=== PATIENT | male | born 2000 | race Caucasian/White ===

== ENCOUNTER 2020-02-01 05:10 | Emergency (ER) | payer OTHER, SELFPAY ==
[2020-02-01 05:12] VITALS: BP 124/75; PULSE 77; RESP 15; TEMP 36.8; O2SAT 97; BMI 23.9
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
--- NOTE | 2020-02-01 05:34 | RAD_ITS ---
STUDY: X-RAY - LEFT HAND, ATTENTION index FINGER REASON FOR EXAM: Male, 19 years old. LEFT INDEX FINGER PAIN AND SWELLING. TECHNIQUE: 3 view(s) of the finger were obtained. COMPARISON: None. FINDINGS: There is an oblique fracture of the proximal phalanx of the index finger with extension to the proximal interphalangeal joint.. Normal middle phalanx. Normal distal phalanx. Normal distal interphalangeal joint. RAD/Finger(s) Min 2 Views IMPRESSION: Mildly displaced oblique fracture of the distal aspect of the proximal phalanx of the index finger with extension to the proximal interphalangeal joint. Electronically Signed: Bonifacio Villagran, at 6:00 EDT Tel , Service support ,
[2020-02-01 06:30] VITALS: BP 124/75; PULSE 77; RESP 15; O2SAT 97
== END 2020-02-01 06:31 | disposition home or self-care (01) ==
LOC: ED 05:56
PROVIDERS: Emergency Provider Emergency Medicine; PCP Family Medicine
DX: S62.611A Displaced fracture of proximal phalanx of left index finger, initial encounter for closed fracture (principal); F17.200 Nicotine dependence, unspecified, uncomplicated; V59.3XXA Occupant (driver) (passenger) of pick-up truck or van injured in unspecified nontraffic accident, initial encounter
CPT/HCPCS: 73140; 99283

== ENCOUNTER 2020-02-11 11:30 | Day surgery (SDC) | payer OTHER, SELFPAY ==
[2020-02-04 08:48] VITALS: BMI 23.9
[2020-02-11 12:02] VITALS: BP 124/69; PULSE 59; RESP 16; TEMP 37.1; O2SAT 98; BMI 22.4
[2020-02-11] MEDS: Lactated Ringers 1,000 ML 100 ML IV (12:08)
[2020-02-11] MEDS: Cefazolin 2 GM in 0.9% Normal Saline 100 ML IV (13:35)
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
--- NOTE | 2020-02-11 13:45 | RAD_ITS ---
STUDY: X-RAY - LEFT HAND, ATTENTION INDEX FINGER REASON FOR EXAM: Percutaneous pinning of left index finger fracture. TECHNIQUE: 6 intraoperative images of the finger were obtained. COMPARISON: Radiographs 02/01/2020. FINDINGS: There are 3 pins transfixing a fracture of the second proximal phalanx in anatomical alignment and position. 79.1 seconds of fluoroscopy time was used. Electronically Signed: Albin Mae MD at 15:16 EDT Tel , Service support , RAD/Finger(s) Min 2 Views
--- NOTE | 2020-02-11 13:46 | PCM.DC.ORTHO ---
Discharge Diet: No Restrictions - leave dressing intact, follow up on sunday with kayla for dressing change and initiation of dynasplint Discharge Activity: May Not Drive May shower in (days): 1 Ice area for (Minutes): 20 - Every hour while awake. Weight Bearing Status: Weight bearing as tolerated Keep extremity elevated above heart level: Operative Extremity Call your doctor if your incision/area has: Continuous Slow Oozing, Sudden Increased Bleeding, Increased Pain/ Swelling, Increased Redness, Foul Smelling Discharge Call your doctor if you observe: Fever of 101 or Higher, Coldness, Increased Pain, Numbness or Tingling, Change in Color, Calf discomfort Allergies/Adverse Reactions: Allergies No Known Allergies Allergy (Verified 02/11/20 11:49) Medications to take at Discharge hydrocodone 5 mg-acetaminophen 325 mg tablet 1 tab PO BID PRN 02/04/20 hydroxyzine HCl 50 mg tablet 50 mg PO QHS 02/04/20 mirtazapine 15 mg tablet 15 mg PO QHS 02/04/20 sertraline 50 mg tablet 50 mg PO QHS 02/04/20 Hydrocodone Bitart/Apap 5-325 [[place] 5MG-325MG] 1 - 2 tablet PO Q6H PRN PRN 5 Days #40 tablet 02/11/20 The following prescriptions were given: Hydrocodone Bitart/Apap 5-325 [[place] 5MG-325MG] 1 - 2 tablet PO Q6H PRN PRN 5 Days #40 tablet PRN Reason: Pain Transmission Status: Sent to [facility] Primary Care Physician: Lillie Wong MD [Primary Care Provider] - Test Results: Test results from this visit will be discussed in further detail at your follow-up appointment, if applicable. Please Follow Up With: Katherin Hale, DO - [phone]
--- NOTE | 2020-02-11 13:47 | PCM.OPRPT ---
Report of Operation Date of Procedure: 02/11/20 Pre-Operative Diagnosis: left hand proximal phalanx- displaced fracture Post-Operative Diagnosis: same Surgery/Procedure Performed:: left hand proximal phalanx crpp (3) pot firer: Travon Nevarez Type of Anesthesia:: General, Local Anesthesiologist: Kevin Moses Replaced: 800cc lr Description of Procedure: Preop note Patient is a 19-year-old male who injured his left index finger. He was seen in the emergency room and noted to be displaced seen in our office it was displaced and malrotated. At that point discussion was for close reduction percutaneous pinning versus open reduction internal fixation. Risk benefits and alternatives were discussed with patient. Risk include but not limited to blood loss, blood clot, infection, neurovascular, failure procedure, loss of life and loss of limb. Patient is aware like proceed with left proximal phalanx first ray close reduction versus open reduction. We discussed the current risk associated COVID-19. While it is understood that there is a community spread of COVID 19 the risk of jesus COVID-19 while at [facility] is very low, however, the risk cannot be completely mitigated because of the community spread of the disease. We discussed in detail the risk of exposure to and or potential harm posed by the COVID-19 virus with having a surgery/procedure at this time versus the risk of delaying the surgery/procedure. Is not possible to know either the risk of delaying the surgery procedure or chance of getting an infection with perfect accuracy, but a joint decision was made to proceed at this time with a schedule surgery/procedure as indicated on the consent form. Patient was notified that we will need to comply with any screening or testing [facility] wishes to perform or that surgery may be delayed for any positive results. Operative note Patient seen and examined preoperative holding area. Left knee was marked. Patient brought to the operating room placed supine the operating table. All bony prominences well-padded SCDs placed on his bilateral lower extremity. Left arm was prepped and draped in usual sterile technique. Timeout was performed. We then closed reduced and noted that he was off and malrotation as well. We used clamps to maintain the stability of the fracture site and then we placed 3 K wires starting from the radial border going ulnarly and making sure in both AP and lateral planes that we had maintained anatomic reduction and he had a good cascade at the end which he did half. We then performed a local block of his index finger for pain control for pain. We took multiple images in both AP and lateral planes. We truncated the pins after bending them and placing dressing on the left hand. A splint was applied to the left index finger at 90 about 80 degrees of flexion. Patient taught procedure well no complication shows recovery room in stable condition Postoperative note Nonweightbearing left hand Follow-up on Sunday for initiation of Dynasplint flexion Call with increased pain numbness tingling or further issues arise Dragon disclaimer Discussed with family This note was generated with [employer] dictation software. It may contain incorrect words, spelling, and punctuation that were not noted in checking the note before signing.
[2020-02-11] MEDS: Ropivacaine 0.5% 30 ML Vial (14:24)
[2020-02-11 14:44] VITALS: BP 124/69; BP 134/96; PULSE 78; RESP 20; TEMP 36.8; O2SAT 98
[2020-02-11 14:55] VITALS: BP 124/69; BP 128/83; PULSE 85; RESP 18; O2SAT 96
[2020-02-11 15:05] VITALS: BP 124/69; BP 133/98; PULSE 91; RESP 17; O2SAT 98
[2020-02-11 15:13] VITALS: BP 124/69; BP 132/81; PULSE 64; RESP 17; TEMP 36.9; O2SAT 98
[2020-02-11 15:56] VITALS: BP 124/69; BP 144/87; PULSE 79; RESP 16; TEMP 36.6; O2SAT 98
== END 2020-02-11 16:00 | disposition home or self-care (01) ==
LOC: SDC 11:31 → AC 11:32
PROVIDERS: PCP Family Medicine; Referring Provider Orthopaedic Surgery; Visit Provider Orthopaedic Surgery
PROC: (CPT 26727; principal; 2020-02-11 13:35)
DX: S62.611A Displaced fracture of proximal phalanx of left index finger, initial encounter for closed fracture (principal); V49.9XXA Car occupant (driver) (passenger) injured in unspecified traffic accident, initial encounter; Y93.89 Activity, other specified; Y92.9 Unspecified place or not applicable; Y99.9 Unspecified external cause status; F17.200 Nicotine dependence, unspecified, uncomplicated; F41.9 Anxiety disorder, unspecified; F32.9 Major depressive disorder, single episode, unspecified; Z79.899 Other long term (current) drug therapy
CPT/HCPCS: 26727; 73140; 76000; J7120; J2405

== ENCOUNTER 2020-03-05 12:46 | Outpatient (RCR) | payer OTHER, SELFPAY ==
[2020-02-16 13:43] VITALS: BMI 22.4
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
--- NOTE | 2020-03-29 18:43 | HP.OTDCSUM_ITS ---
It has been my pleasure to treat DAMIAN LEVY under orders from Dr. Katherin Hale DO, for the diagnosis of left IF proximal phalanx fx with percutaneous pinning for a total of 1 visit(s). Please see the following information for a summary of their discharge status. % Improvement: 0 Patient Goals: Regain Mobility Goal:: will initiate at week 6-8 based on report. 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 Discharge Comments: pt seen for one visit only-. called in and cancelled remaining visits as he is unable to make apts. pt d/c at this time. If there are questions or concerns regarding this patient's occupational therapy, please fell free to call me at [phone]. Thank you for the referral of this patient. Sincerely, Melissa Way, OTR/L, CHT
== END 2020-03-05 19:00 | disposition home or self-care (01) ==
LOC: OT 12:46
PROVIDERS: PCP Family Medicine; Visit Provider Orthopaedic Surgery
DX: Z98.890 Other specified postprocedural states (principal)
CPT/HCPCS: 97165; 97760

== ENCOUNTER 2020-03-26 06:05 | Day surgery (SDC) | payer OTHER, SELFPAY ==
[2020-02-16 13:43] VITALS: BMI 22.4
[2020-03-26 06:21] VITALS: BP 130/68; PULSE 71; RESP 16; TEMP 37.1; O2SAT 94; BMI 24.0
[2020-03-26] MEDS: Lactated Ringers 1,000 ML 100 ML IV (06:28)
--- NOTE | 2020-03-26 06:52 | HP_ITS ---
I have re-examined the patient. There are no clinical changes since date of exam. Intake Intake Visit Reasons: LEFT HAND Accompanied by: Self Is patient in pain?: No Allergies No Known Allergies Allergy (Verified 03/25/20 08:09) Medications hydroxyzine HCl 50 mg tablet 50 mg PO QHS 03/05/20 [History Confirmed 03/25/20] PFSH Social History (Updated 03/25/20 @ 09:[address] Katherin Hale DO) Smoking Status: Current every day smoker HPI LEFT HAND: Surgical H&P: Yes Details: Parts of this documentation were recorded by a scribe, this documentation accurately reflects the service provided and the decisions made by me, Dr. Katherin Hale, 03/25/20 0805. DAMIAN LEVY is a 19 year old M here today for his six week follow up. DOS: 02/11/2020, left hand proximal phalanx crpp (3). Patient denies pain and discomfort. Denies numbness and tingling as well. Has some stiffness this morning. Patient has been continuing at home exercises, denies going to OT. Patient has not been compliant with OT d/t work. ROS [place] Reports system reviewed and no additional complaints, except as docu, Denies joint pain, Denies joint swelling, Denies numbness, Reports stiffness, Denies tingling Neuro No numbness, No tingling Ortho Exam Right Wrist/Hand Skin/Wound: Yes Swelling Left Wrist/Hand Date of Surgery: 02/11/20 Skin/Wound: Yes Swelling Left Wrist: Yes ROM-Extension 0-60 (45) and Yes ROM-Flexion 0-80 (90) WRIST: three K wires removed Mallet finger 28 degrees extension 95 flexion Assessment & Plan Problems 1. Orthopedic aftercare Z47.89 2. 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 Advised the swelling should subside. Placed patient in a splint and advised compliance with the splint. Will schedule surgery for patient to have a pin placed across dip joint for mallet finger. Reviewed the pre-operative plans with the patient. Risks and benefits of the procedure were fully explained, including but not limited to infection, neurovascular injury, continued pain, arthritis, stiffness, need for further surgery, re-injury, DVT, PE, general risks of anesthesia, and loss of limb or life. The patient understands all the risks and does wish to proceed with written consent. We discussed the current risk associated COVID-19. While it is understood that there is a community spread of COVID 19 the risk of jesus COVID-[address] [facility] is very low, however, the risk cannot be completely mitigated because of the community spread of the disease. We discussed in detail the risk of exposure to and or potential harm posed by the COVID-19 virus with having a surgery/procedure at this time versus the risk of delaying the surgery/procedure. Is not possible to know either the risk of delaying the surgery procedure or chance of getting an infection with perfect accuracy, but a joint decision was made to proceed at this time with a schedule surgery/procedure as indicated on the consent form. Patient was notified that we will need to comply with any screening or testing [facility] wishes to perform or that surgery may be delayed for any positive results. All questions answered. Patient in agreement of plan. Follow up in 2 weeks or sooner if pain, swelling, numbness or associated symptoms, or concerns develop. 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
--- NOTE | 2020-03-26 07:17 | OP.PCM_ITS ---
Report of Operation Date of Procedure: 03/26/20 Pre-Operative Diagnosis: left index finger mallet finger Post-Operative Diagnosis: same Surgery/Procedure Performed:: left index finger dip close reduction percutaneous pinning exterior work helper: Brian Shaw Type of Anesthesia:: General Anesthesiologist: Kevin Moses Estimated Blood Loss (mL): none Fluids Replaced: 600cc lr Description of Procedure: Preop note Patient is 19-year-old male who had a collection percutaneous pinning 6 weeks ago was noted in the office to have a mallet unsure when this occurred it was prior to the initial surgery happened afterwards as patient is been noncompliant has not on occupational therapy was not wearing a splint is been doing his Dynasplint very minimally so that he has a flexion deformity of his PIP joint of his proximal phalanx had been pinned 6 weeks prior but has since healed his pins were pulled in the office at that point he had a noted to have an extensor lag of his DIP joint. We did discuss the risk benefits alternatives surgery splinting versus pinning however as patient is quite noncompliant the best option for him to have a functional use of his index finger and is released in extension abated to do a trial of a close reduction percutaneous pinning buried the pin and pull in the OR in 8 weeks. Risk benefits and alternatives were discussed with patient. Risk include but not limited to blood loss, blood clot, infection, neurovascular, failure procedure, loss of life and loss of limb. Patient is aware would like proceed with left index finger close reduction percutaneous pinning of the DIP joint for bony for excision for soft tissue mallet. Operative note Patient seen and examined. Well-tolerated. Left index finger was marked. Patient brought to the operating placed supine on the operating table. Signed, anesthesia, antibiotics were administered. Prepped and draped the left arm as usual sterile technique. We used C arm to ascertain the level of the pin we placed the level of the size of the pin which was a 5 4 K wire. Timeout was performed. We then extended the DIP joint of the left finger. We had to debride some of his nail back for that was too long first and actually that the nail right underneath the nailbed starting right underneath the nail at the insertion of the distal phalanx. Replaced the 5/4 through the distal phalanx again holding the finger in extension we then crossed the DIP joint and placed the K wire into the middle phalanx then tamped the and then cut the truncated the distal end of the K wire and then malleted down a little bit distant so that it was subcu but that we could take it out at a future date. We took multiple images in AP and lateral planes ensure that we had good reduction of an extension and had which we did have. Sterile dressings were applied to the finger. Patient taught procedure well no complications transferred recovery in stable condition. Operative note Discussed with patient preoperatively that patient really needs to do occupational therapy he is at risk for having a tenolysis as he was noncompliant We will pull the pin in 8 weeks Prescriptions at pharmacy has Call with increased pain numbness tingling further issues arise Dragon disclaimer this note was generated with [employer] dictation software. It may contain incorrect words, spelling, and punctuation that were not noted in checking the note before signing.
--- NOTE | 2020-03-26 07:17 | PCM.DC.ORTHO ---
Discharge Diet: No Restrictions - elevate hand as much as possible, follow up in 2 weeks, call with concerns, START OT Discharge Activity: May Not Drive May shower in (days): 1 Ice area for (Minutes): 20 - Every hour while awake. Weight Bearing Status: Weight bearing as tolerated Keep extremity elevated above heart level: Operative Extremity Call your doctor if your incision/area has: Continuous Slow Oozing, Sudden Increased Bleeding, Increased Pain/ Swelling, Increased Redness, Foul Smelling Discharge Call your doctor if you observe: Fever of 101 or Higher, Coldness, Increased Pain, Numbness or Tingling, Change in Color, Calf discomfort Allergies/Adverse Reactions: Allergies No Known Allergies Allergy (Verified 03/26/20 06:20) Medications to take at Discharge hydroxyzine HCl 50 mg tablet 50 mg PO QHS 03/05/20 Oxycodone HCl/Acetaminophen [Percocet 5/325] 1 - 2 tab PO Q6H PRN PRN 5 Days #10 tab 03/26/20 The following prescriptions were given: Oxycodone HCl/Acetaminophen [Percocet 5/325] 1 - 2 tab PO Q6H PRN PRN 5 Days #10 tab PRN Reason: Pain Transmission Status: Received by [facility] Primary Care Physician: Lillie Wong MD [Primary Care Provider] - Test Results: Test results from this visit will be discussed in further detail at your follow-up appointment, if applicable. Please Follow Up With: Katherin Hale, DO - [phone]
[2020-03-26] MEDS: Cefazolin 2 GM in 0.9% Normal Saline 100 ML IV (07:26)
--- NOTE | 2020-03-26 07:30 | RAD_ITS ---
STUDY: X-RAY - LEFT HAND, ATTENTION INDEX FINGER REASON FOR EXAM: Pinning of left index finger. TECHNIQUE: 2 intraoperative images of the finger were obtained. COMPARISON: Radiographs 03/25/2020. FINDINGS: There is an orthopedic pin in the distal and middle phalanges of the index finger transfixing the distal interphalangeal joint. There is a healing fracture of the proximal phalanx. Electronically Signed: Albin Mae MD at 11:44 EST Tel , Service support , RAD/Finger(s) Min 2 Views
[2020-03-26] MEDS: Bupivacaine 0.25% 30 ML Vial (07:43)
[2020-03-26] MEDS: Mupirocin Ointment 22gm Tube 1 APPLIC (07:49)
[2020-03-26 08:11] VITALS: BP 118/59; BP 130/68; PULSE 68; RESP 16; TEMP 36.1; O2SAT 97
[2020-03-26 08:15] VITALS: BP 107/70; BP 130/68; PULSE 73; RESP 16; O2SAT 100
[2020-03-26 08:30] VITALS: BP 108/60; BP 130/68; PULSE 62; RESP 16; O2SAT 97
[2020-03-26 08:40] VITALS: BP 110/62; BP 130/68; PULSE 56; RESP 16; TEMP 36.2; O2SAT 100
[2020-03-26 09:33] VITALS: BP 123/66; BP 130/68; PULSE 16; RESP 70; TEMP 36.4; O2SAT 98
== END 2020-03-26 09:33 | disposition home or self-care (01) ==
LOC: SDC 06:06 → AC 06:06
PROVIDERS: PCP Family Medicine; Referring Provider Orthopaedic Surgery; Visit Provider Orthopaedic Surgery
PROC: (CPT 26756; principal; 2020-03-26 07:15)
DX: M20.012 Mallet finger of left finger(s) (principal); Z20.828 Contact with and (suspected) exposure to other viral communicable diseases; F17.200 Nicotine dependence, unspecified, uncomplicated; Z91.19 Patient's noncompliance with other medical treatment and regimen
CPT/HCPCS: 01820; 26756; 73140; 76000; 87426; C9803; J7120; J2405

== ENCOUNTER 2020-05-26 08:34 | Day surgery (SDC) | payer OTHER, SELFPAY ==
--- NOTE | 2020-05-26 05:00 | HP_ITS ---
I have re-examined the patient. There are no clinical changes since date of exam. Intake Intake Visit Reasons: Left hand Allergies No Known Allergies Allergy (Verified 03/26/20 06:20) [facility] Social History (Updated 05/18/20 @ 10:[address] Katherin Hale, ) Smoking Status: Current every day smoker HPI Left hand: Surgical H&P: Yes Details: Parts of this documentation were recorded by a scribe, this documentation accurately reflects the service provided and the decisions made by me, Dr. Katherin Hale DO 05/18/20 0820. DAMIAN LEVY is a 19 year old M here today for 7 week and 3 day post op from left index finger dip close reduction percutaneous pinning. Patient is here today for his F/U appointment and to schedule pin removal, the pin will need to be removed in the OR d/t the pin being buried so patient could continue to work. ROS [facility] [place] Reports system reviewed and no additional complaints, except as docu, Denies joint pain, Denies joint swelling, Denies numbness, Reports stiffness, Denies tingling Neuro No numbness, No tingling Ortho Exam General General: Yes no acute distress Neurologic: Yes alert, Yes oriented x3 Psychologic: Yes reasonable and appropriate Right Wrist/Hand Skin/Wound: Yes Swelling, No Ecchymosis Left Wrist/Hand Date of Surgery: 03/26/20 Skin/Wound: Yes Swelling, No Ecchymosis, Yes capillary refill normal, No erythema WRIST: lacking 2 degrees from extension at PIP has 90 degrees of flexion at PIP no ROM of DIP Assessment & Plan Problems 1. Mallet finger of left finger(s) M20.012 2. Orthopedic aftercare Z47.89 Plan Personally reviewed patients x-rays of the left finger. Patient educated that his pin is still in place and we can now remove the pin since it has been over 6 weeks. has full rom omf pip and mcp joint. Patient wishes to proceed with Left index finger removal of hardware, repair as indicated. Reviewed the pre-operative plans with the patient. Risks and benefits of the procedure were fully explained, including but not limited to infection, neurovascular injury, continued pain, arthritis, stiffness, need for further surgery, re-injury, DVT, PE, general risks of anesthesia, and loss of limb or life. The patient understands all the risks and does wish to proceed with written consent. After surgery we will place him in a stack splint. Follow up 2 weeks post op or sooner if pain, swelling, numbness or associated symptoms, or concerns develop. All questions answered. Patient in agreement of plan. Orders Orders: Finger(s) Min 2 Views Today M20.012 Coding Level of Care Code Global Post Op Diagnoses Mallet finger of left finger(s) M20.012 Orthopedic aftercare Z47.89
[2020-05-26 09:05] VITALS: BP 118/63; PULSE 75; RESP 16; TEMP 36.4; O2SAT 99; BMI 22.8
[2020-05-26] MEDS: Lactated Ringers 1,000 ML 100 ML IV (09:30)
[2020-05-26] MEDS: Cefazolin 2 GM in 0.9% Normal Saline 100 ML IV (09:38)
--- NOTE | 2020-05-26 10:00 | RAD_ITS ---
STUDY: X-RAY - LEFT HAND, ATTENTION SECOND FINGER REASON FOR EXAM: Removal of hardware from index finger. TECHNIQUE: 2 intraoperative images) of the finger were obtained. COMPARISON: Radiographs 05/18/2020. FINDINGS: There is removal of the orthopedic pin transfixing the distal interphalangeal joint without evidence of complication. 7 seconds of fluoroscopy time was used. Electronically Signed: Albin Mae MD at 11:05 EST Tel , Service support , RAD/Finger(s) Min 2 Views
[2020-05-26] MEDS: Mupirocin Ointment 22gm Tube 1 APPLIC (10:01)
--- NOTE | 2020-05-26 10:05 | OP.PCM_ITS ---
Report of Operation Date of Procedure: 05/26/20 Pre-Operative Diagnosis: left mallet finger index,prev perc pinning Post-Operative Diagnosis: same Surgery/Procedure Performed:: removal of hardware left index finger, chromosomal disorders counselor: Travon Nevarez Type of Anesthesia:: General Anesthesiologist: Vinay Ross Specimen's removed: k wire removed, tip intact Estimated Blood Loss (mL): min Fluids Replaced: 500cc lr Description of Procedure: Preop note Patient is a 19-year-old male well-known to me he had a previous mallet finger that was pinned and the pin was buried of his left index finger. Patient had a for 6 weeks we then saw and he was concentrically reduced maintain his extension patient elected to proceed for removal of pin in the OR. We discussed anesthesia patient is not on a block to remove the pin wanted to go for general and this was discussed with patient at length the risks with this and he still like to proceed with general. Risks associated with pin removal of pin breakage retained pin furthering of the mallet loss of reduction continued stiffness and pain. Patient is aware he was given a splint to wear at night for the next 6 weeks but he may remove it during the day. Op note Patient seen in preop holding area. Left index finger was marked. Patient brought to the operating room placed supine on the operating table. 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 The left arm was prepped and draped in usual sterile technique. We used fluoroscopy to ensure that the pin was intact and the DIP joint was consensually concentrically reduced which it was. Timeout was performed. We then palpated the tip of the wire placed a tourniquet turnicot on the finger. We then used an 11 blade to dissect this on top of the K wire and then used needle-nose pliers to pull the K wire out the tip was intact. We used fluoroscopy at the end to ensure that there is no breakage in the wire was removed intact which it was. He was prepped and sterile dressings were applied the turnicot was removed. Patient taught procedure well no complication transferred recovery room in stable condition Postoperative note Use hand as tolerated keep dressing clean dry and intact Follow-up in 2 weeks Tramadol at Hospital pharmacy Call with increased pain numbness tingling or other issues arise This note was generated with [employer] software. It may contain incorrect words, spelling, and punctuation that were not noted in checking the note before signing.
--- NOTE | 2020-05-26 10:05 | PCM.DC.ORTHO ---
Discharge Diet: No Restrictions - may use hand as tolerated, follow up in 2 weeks for dressing change, use night splint every night for the next 6 weeks, call with concerns Discharge Activity: May Not Drive May shower in (days): 1 Ice area for (Minutes): 20 - Every hour while awake. Weight Bearing Status: Weight bearing as tolerated Keep extremity elevated above heart level: Operative Extremity Call your doctor if your incision/area has: Continuous Slow Oozing, Sudden Increased Bleeding, Increased Pain/ Swelling, Increased Redness, Foul Smelling Discharge Call your doctor if you observe: Fever of 101 or Higher, Coldness, Increased Pain, Numbness or Tingling, Change in Color, Calf discomfort Allergies/Adverse Reactions: Allergies No Known Allergies Allergy (Verified 05/20/20 08:09) Medications to take at Discharge hydroxyzine HCl 50 mg tablet 50 mg PO QHS 03/05/20 traMADol [Ultram] 50 mg PO Q6H PRN PRN 5 Days #10 tablet 05/26/20 The following prescriptions were given: traMADol [Ultram] 50 mg PO Q6H PRN PRN 5 Days #10 tablet PRN Reason: Pain 1-10 Or Fever Transmission Status: Sent to [facility] Primary Care Physician: Lillie Wong MD [Primary Care Provider] - Test Results: Test results from this visit will be discussed in further detail at your follow-up appointment, if applicable. Please Follow Up With: Katherin Hale, DO - [phone]
[2020-05-26 10:12] VITALS: BP 115/70; BP 118/63; PULSE 65; RESP 18; TEMP 36.1; O2SAT 100
[2020-05-26 10:15] VITALS: BP 116/57; BP 118/63; PULSE 72; RESP 16; O2SAT 99
[2020-05-26 10:29] VITALS: BP 112/61; BP 118/63; PULSE 69; RESP 16; O2SAT 99
[2020-05-26 10:35] VITALS: BP 100/80; BP 118/63; PULSE 58; RESP 16; TEMP 36.3; O2SAT 99
[2020-05-26 11:28] VITALS: BP 115/69; BP 118/63; PULSE 66; RESP 16; TEMP 36.9; O2SAT 98
== END 2020-05-26 11:29 | disposition home or self-care (01) ==
LOC: SDC 08:35 → AC 08:36
PROVIDERS: PCP Family Medicine; Referring Provider Orthopaedic Surgery; Visit Provider Orthopaedic Surgery
PROC: (CPT 20670; principal; 2020-05-26 09:45)
DX: M20.012 Mallet finger of left finger(s) (principal); Z20.828 Contact with and (suspected) exposure to other viral communicable diseases; F17.200 Nicotine dependence, unspecified, uncomplicated; F32.9 Major depressive disorder, single episode, unspecified
CPT/HCPCS: 00400; 20670; 73140; 76000; 87426; C9803; J7120; J2405

== ENCOUNTER → 2021-01-14 10:34 | Outpatient (CLI) | payer OTHER, SELFPAY ==
[2021-01-14 12:11] LABS: Absolute Lymphocyte Count 1.02 X10^3/uL (0.83-4.51); Absolute Neutrophil Count 3.9 X10^3/uL (2.0-7.7); Basophil# 0.02 X10^3/uL; Basophil% 0.4 % (0-1); Eosinophil# 0.04 X10^3/uL; Eosinophils% 0.7 % (0-5); Hematocrit 42.5 % (40-54); Hemoglobin 14.4 g/dL (13.0-16.5); Lymphocyte # 1.02 X10^3/ul (0.83-4.51); Lymphocyte % 19.1 % (19-41); Mean Corp Hgb Conc 33.9 g/dL (32-36); Mean Corpuscular Hgb 30.8 pg (27.0-32.0); Mean Platelet Vol. 9.9 fl (6.2-12.0); Monocyte% 7.5 % (0-10); NRBC Flagged by Analyzer 0 % (0-5); Neutrophil # 3.85 X10^3/uL (2.7-7.7); Neutrophil % 71.9 % (47-70); Platelet Count 248 K/mm3 (150-450); RBC Distribution Width SD 43.2 fl (35.1-43.9); Red Blood Count 4.67 M/mm3 (4.6-6.2); White Blood Count 5.4 K/mm3 (4.4-11.0)
[2021-01-14 12:25] LABS: AST(SGOT) 18 U/L (15-37); Alanine Aminotransfer ALT/SGPT 14 U/L (16-61); Albumin, Serum 3.7 g/dL (3.2-5.0); Alkaline Phosphatase 72 U/L (45-117); Bilirubin, Direct 0.22 mg/dL (0.00-0.30); Cholesterol 98 mg/dL (200); Globulin 3.8 g/dL (2.2-4.2); High Density Lipoprotein 74 mg/dL; Protein, Total 7.5 g/dL (6.4-8.2); Triglycerides 72 mg/dL; Very Low Density Lipoprotein 14 mg/dL (5-40)
== END ==
PROVIDERS: PCP Family Medicine; Referring Provider Physician Assistant Medical; Visit Provider Physician Assistant Medical
DX: L70.0 Acne vulgaris (principal); Z79.899 Other long term (current) drug therapy
CPT/HCPCS: 36415; 80061; 80076; 85025

== ENCOUNTER → 2021-05-10 10:52 | Outpatient (CLI) | payer OTHER, SELFPAY ==
[2021-05-10 12:30] LABS: Absolute Lymphocyte Count 1.77 X10^3/uL (0.83-4.51); Absolute Neutrophil Count 5.6 X10^3/uL (2.0-7.7); Basophil# 0.04 X10^3/uL; Basophil% 0.5 % (0-1); Eosinophil# 0.07 X10^3/uL; Eosinophils% 0.8 % (0-5); Hematocrit 40.2 % (40-54); Hemoglobin 13.8 g/dL (13.0-16.5); Lymphocyte # 1.77 X10^3/ul (0.83-4.51); Lymphocyte % 21.4 % (19-41); Mean Corp Hgb Conc 34.3 g/dL (32-36); Mean Corpuscular Hgb 30.8 pg (27.0-32.0); Mean Corpuscular Volume 89.7 fL (80-94); Mean Platelet Vol. 9.8 fl (6.2-12.0); Monocyte# 0.74 X10^3/uL; Monocyte% 8.9 % (0-10); NRBC Flagged by Analyzer 0 % (0-5); Neutrophil # 5.64 X10^3/uL (2.7-7.7); Neutrophil % 68.2 % (47-70); Platelet Count 297 K/mm3 (150-450); RBC Distribution Width CV 12.3 % (11.6-14.6); RBC Distribution Width SD 40.8 fl (35.1-43.9); Red Blood Count 4.48 M/mm3 (4.6-6.2); White Blood Count 8.3 K/mm3 (4.4-11.0)
[2021-05-10 12:48] LABS: AST(SGOT) 16 U/L (15-37); Alanine Aminotransfer ALT/SGPT 13 U/L (16-61); Albumin, Serum 3.9 g/dL (3.2-5.0); Alkaline Phosphatase 80 U/L (45-117); Bilirubin, Direct 0.06 mg/dL (0.00-0.30); Cholesterol 122 mg/dL (200); Globulin 3.9 g/dL (2.2-4.2); High Density Lipoprotein 51 mg/dL; Protein, Total 7.8 g/dL (6.4-8.2); Triglycerides 199 mg/dL; Very Low Density Lipoprotein 40 mg/dL (5-40)
== END ==
PROVIDERS: PCP Family Medicine; Referring Provider Physician Assistant Medical; Visit Provider Physician Assistant Medical
DX: L70.0 Acne vulgaris (principal); Z79.899 Other long term (current) drug therapy
CPT/HCPCS: 36415; 80061; 80076; 85025

== ENCOUNTER 2021-08-11 23:46 | Emergency (ER) | payer OTHER, SELFPAY ==
[2021-08-11 23:47] VITALS: BP 136/62; PULSE 60; RESP 16; TEMP 36.5; O2SAT 99; BMI 22.2
--- NOTE | 2021-08-12 00:12 | RAD_ITS ---
EXAM: XR LEFT HAND COMPLETE, 3 OR MORE VIEWS CLINICAL INDICATION: injury TECHNIQUE: Frontal, lateral and oblique views of the left hand. This report was created using [employer] report generation technology. COMPARISON: None. FINDINGS: BONES/JOINTS: Unremarkable. No acute fracture. No subluxation. Normal alignment. Preservation of the joint space. No sclerotic or destructive changes observed. SOFT TISSUES: Unremarkable. No soft tissue swelling or gas. No radiopaque foreign body. RAD/Hand Min 3 Views IMPRESSION: Negative left hand x-rays. Electronically Signed: Walter Sheehan MD at 0:53 EDT ,
--- NOTE | 2021-08-12 00:12 | RAD_ITS ---
EXAM: XR LEFT WRIST COMPLETE, 3 OR MORE VIEWS CLINICAL INDICATION: injury TECHNIQUE: Frontal, lateral and oblique views of the left wrist. This report was created using [employer] report generation technology. COMPARISON: None. FINDINGS: BONES/JOINTS: Unremarkable. No acute fracture. No subluxation. Normal alignment. Preservation of the joint space. No sclerotic or destructive changes observed. SOFT TISSUES: Unremarkable. No soft tissue swelling or gas. No radiopaque foreign body. RAD/Wrist min 3 Views IMPRESSION: Negative left wrist x-rays. Electronically Signed: Walter Sheehan MD at 0:53 EDT ,
--- NOTE | 2021-08-12 00:16 | EDS_ITS ---
HPI History of Present Illness Chief Complaint: Upper Extremity Injury Narrative Narrative: Patient is a 20-year-old male who is right-hand dominant. He works third shift and just an hour prior to arrival got his left hand caught in between a electric lift and metal bar. He states that his hand got twisted and pulled forward and he was able to stop the lift and pull his hand out. He states he tried to work but as time went by he had increased pain with any type of motion and therefore comes in for evaluation. Otherwise patient denies any other trauma numbness tingling or weakness PFSH PFSH Medical History no medical history Home Medications hydroxyzine HCl 50 mg tablet 50 mg PO QHS 03/05/20 [History Last Taken Unknown] Allergy/AdvReac Type Severity Reaction Status Date / Time No Known Allergies Allergy Verified 08/11/21 23:49 Social History (Updated 05/18/20 @ 10:[address] Katherin Hale, DO) Smoking Status: Former smoker ROS ROS ED Constitutional Constitutional ED: Denies chills or fever(s) ENT ENT ED: Denies sore throat Cardiovascular Cardiovascular: Denies chest pain Respiratory/Chest Respiratory/Chest: Denies cough or dyspnea Gastrointestinal Gastrointestinal: Denies abdominal pain, diarrhea, nausea or vomiting Genitourinary Genitourinary ED: Denies dysuria Musculoskeletal Musculoskeletal: Reports other Details: Positive left hand/wrist pain ; Denies myalgias Integumentary Reports Abrasions; Denies rash Neurologic Neurologic: Denies headache(s), paresthesias or weakness Hematologic/Lymphatic Hematologic/Lymphatic: Denies easy bleeding or easy bruising EXAM Physical Exam Const Vital Signs: 08/11/21 23:47 Temperature 97.7 F L Temperature Source Temporal Pulse Rate 60 Respiratory Rate 16 Blood Pressure 136/62 H Blood Pressure Mean 86 Pulse Ox 99 Oxygen Delivery Method Room Air Positive well nourished and well developed General Appearance ED: well developed Eyes PERRL and EOMs intact bilaterally Neck supple Resp normal respiratory effort and clear to auscultation bilaterally Cardio regular rate and regular rhythm Extremity Extremity Narrative: Left upper extremity is neurovascularly intact; AIN/PIN are intact and normal. Active range of motion is slightly decreased secondary to pain. There is mild soft tissue swelling to the dorsal aspect of the left hand with slight abrasion at the site consistent with report of trauma. No pain in the anatomical snuff. No ligamentous laxity noted. There is pain with palpation over top the dorsal aspect of the distal radius and ulna. Pain does worsen with flexion. remainder of the exam is normal. Neuro oriented x3 and CN's II-XII intact bilaterally Sensorium / Orientation: alert Psych mental status grossly normal Skin no rashes or lesions noted Skin Narrative: Superficial abrasion to the dorsal aspect of the left hand as documented above MDM MDM MDM Narrative Medical decision making narrative: Noted to the ER with stable vitals and no obvious bony deformity or joint effusion. He reported more of a supination and traction injury and on exam had pain with flexion indicating wrist sprain. X- rays were obtained to rule out underlying fracture associated with this. X-ray shows no acute fracture or dislocation or widening of any of the metacarpal bones. Therefore at this time based on his history and exam I feel patient has a left wrist sprain and he can be placed in a Velcro brace for stabilization but otherwise as there is no ligamentous or tendon injury no bony deformity or dislocation there is no need for further work-up orthopedic evaluation and patient is safe for discharge. Radiography Diagnostic Testing: X-rays as reviewed by the emergency medicine physician shows no acute fracture or dislocation throughout the hand or wrist Discharge Plan Triage Chief Complaint: Upper Extremity Injury ED Provider: Ike Lopez Dx/Rx/DC Orders Clinical Impression: Left wrist sprain Instructions: ED Wrist Sprain Prescriptions: No Action hydroxyzine HCl 50 mg tablet 50 mg PO QHS RF: 0 Primary Care Provider: Lillie Wong Referrals: Lillie Wong MD [Primary Care Provider] - Activity Restrictions/Additional Instructions: Please wear your wrist brace for stabilization and if there is no improvement after 10 to 14 days discuss with your HR department further Workmen's Comp. referral to discuss need for MRI to assess for ligamentous or tendon tear Disposition Disposition: Home, Self Care
[2021-08-12 01:15] VITALS: PULSE 65; RESP 18; O2SAT 97
== END 2021-08-12 01:15 | disposition home or self-care (01) ==
PROVIDERS: Emergency Provider Emergency Medicine; PCP Family Medicine; Visit Provider Emergency Medicine
DX: S63.92XA Sprain of unspecified part of left wrist and hand, initial encounter (principal); W23.0XXA Caught, crushed, jammed, or pinched between moving objects, initial encounter; Z87.891 Personal history of nicotine dependence
CPT/HCPCS: 73110; 73130; 99283

== ENCOUNTER 2021-12-22 04:52 | Emergency (ER) | payer OTHER, BC, SELFPAY ==
[2021-12-22 04:53] VITALS: BP 123/73; PULSE 62; RESP 18; TEMP 37.1; O2SAT 97; BMI 21.6
--- NOTE | 2021-12-22 05:40 | RAD_ITS ---
EXAM: XR LEFT HAND COMPLETE, 3 OR MORE VIEWS CLINICAL INDICATION: pain TECHNIQUE: Frontal, lateral and oblique views of the left hand. This report was created using [employer] report generation technology. COMPARISON: Left wrist radiographs of this date. Left hand radiographs of 08/12/2021. FINDINGS: BONES/JOINTS: Unremarkable. No acute fracture. No dislocation. Normal alignment. Preservation of the joint space. No sclerotic or destructive changes observed. SOFT TISSUES: Unremarkable. No soft tissue swelling or gas. No radiopaque foreign body. RAD/Hand Min 3 Views IMPRESSION: No significant interval change. Negative left hand x-rays. Electronically Signed: Berry Hernandez MD at 6:47 EDT ,
--- NOTE | 2021-12-22 05:40 | RAD_ITS ---
EXAM: XR LEFT WRIST COMPLETE, 3 OR MORE VIEWS CLINICAL INDICATION: pain TECHNIQUE: Frontal, lateral and oblique views of the left wrist. This report was created using [employer] report generation technology. COMPARISON: Left hand radiographs of this date. Previous left wrist radiographs of 08/12/2021. FINDINGS: BONES/JOINTS: Unremarkable. No acute fracture. No dislocation. Normal alignment. Preservation of the joint space. No sclerotic or destructive changes observed. SOFT TISSUES: Unremarkable. No soft tissue swelling or gas. No radiopaque foreign body. RAD/Wrist min 3 Views IMPRESSION: No significant interval change. Negative left wrist x-rays. Electronically Signed: Berry Hernandez MD at 6:48 EDT ,
--- NOTE | 2021-12-22 05:53 | EDS_ITS ---
HPI History of Present Illness Chief Complaint: Upper Extremity Injury Narrative Narrative: Patient is a 21-year-old [id number] male who reports that a few months ago he injured his left hand at work when he got caught into a strap and was pulled in an awkward position. He states that he had worn a brace for a few weeks following this and his hand/wrist improved. He states this evening he was at work doing rapid repetitive motions with his left arm/hand when he developed increased pain. He denies any direct trauma that occurred this evening but with his previous injury and now the return of pain this evening he presents for evaluation. [facility] Medical History Diabetes Home Medications metformin 500 mg tablet,extended release 24 hr 500 mg PO DAILY 12/22/21 [History Last Taken Unknown] Allergy/AdvReac Type Severity Reaction Status Date / Time No Known Allergies Allergy Verified 08/11/21 23:49 Social History (Updated 05/18/20 @ 10:[address] Katherin Hale, ) Smoking Status: Former smoker ROS ROS ED Constitutional Constitutional ED: Denies chills or fever(s) ENT ENT ED: Denies sore throat Cardiovascular Cardiovascular: Denies chest pain Respiratory/Chest Respiratory/Chest: Denies cough or dyspnea Gastrointestinal Gastrointestinal: Denies abdominal pain, diarrhea, nausea or vomiting Genitourinary Genitourinary ED: Denies dysuria Musculoskeletal Musculoskeletal: Reports other Details: Positive left hand/wrist pain Integumentary Denies Abrasions or rash Neurologic Neurologic: Reports paresthesias; Denies headache(s) or weakness Hematologic/Lymphatic Hematologic/Lymphatic: Denies easy bleeding or easy bruising EXAM Physical Exam Const Vital Signs: 12/22/21 04:53 Temperature 98.7 F Temperature Source Oral Pulse Rate 62 Respiratory Rate 18 Blood Pressure 123/73 H Blood Pressure Mean 89 Pulse Ox 97 Oxygen Delivery Method Room Air Positive well nourished and well developed General Appearance ED: well developed Eyes PERRL and EOMs intact bilaterally Neck supple Resp normal respiratory effort and clear to auscultation bilaterally Cardio regular rate and regular rhythm Extremity Extremity Narrative: Left upper extremity is neurovascularly intact; AIN/PIN are intact and normal. Patient does have mild soft tissue swelling to the dorsum of the left hand without abrasions or ecchymosis. There is pain on palpation over top the distal portion of the third and fourth metacarpals as well as pain with palpation in the midline wrist over top the hamate bone region. There is no obvious ligamentous laxity or tendon injury. No pain in the anatomical snuffbox. Remainder the exam is normal Neuro oriented x3 and CN's II-XII intact bilaterally Sensorium / Orientation: alert Psych mental status grossly normal Skin no rashes or lesions noted MDM MDM MDM Narrative Medical decision making narrative: Patient presented to the ER with left hand/wrist pain with no direct trauma. By exam he has normal blood flow with no signs of infection no ligamentous or tendon laxity. However he does have pain with hyperextension of the left wrist consistent with a left wrist sprain. As he injury/pain occurred at work x-rays were obtained. These revealed no acute signs of fracture dislocation or foreign body. Therefore at this time as his history and exam indicates left wrist sprain as a cause of his symptoms but he is neurovascular intact without obvious changes to suggest ligamentous or tendon he can be placed in a Velcro brace and discharged home with symptomatic care. Radiography Diagnostic Testing: Left hand x-ray as interpreted by the emergency medicine physician reveals no ac dena fracture dislocation or foreign body Left wrist x-ray as interpreted by the emergency medicine physician also reveals no acute fracture dislocation or foreign body Discharge Plan Triage Chief Complaint: Upper Extremity Injury ED Provider: Ike Lopez Dx/Rx/DC Orders Clinical Impression: Left wrist sprain Instructions: ED Wrist Sprain Prescriptions: No Action metformin 500 mg tablet extended release 24 hr 500 mg PO DAILY Label Comments: TAKE 1 TABLET BY MOUTH EVERY DAY Primary Care Provider: Lillie Wong Referrals: Lillie Wong MD [Primary Care Provider] - Activity Restrictions/Additional Instructions: Please wear your brace for stabilization in order to reduce pain and speed healing. Take Tylenol and/or Motrin for pain control. Please reduce the amount of activity you perform with your left hand/wrist for the next 5 days to also speed recovery and return to the ER should you have any further concerns. Disposition Disposition: Home, Self Care
[2021-12-22] MEDS: Ketorolac 30 MG/ML Syringe IM (06:16)
[2021-12-22 07:14] VITALS: BP 123/73; PULSE 62; RESP 18; O2SAT 97
== END 2021-12-22 07:15 | disposition home or self-care (01) ==
PROVIDERS: Emergency Provider Emergency Medicine; PCP Family Medicine; Visit Provider Emergency Medicine
DX: S63.502A Unspecified sprain of left wrist, initial encounter (principal); E11.9 Type 2 diabetes mellitus without complications; Z87.891 Personal history of nicotine dependence; Z79.84 Long term (current) use of oral hypoglycemic drugs; X58.XXXA Exposure to other specified factors, initial encounter
CPT/HCPCS: 73110; 73130; 96372; 99283